=== PATIENT | female | born 1995 | race Caucasian/White ===

== ENCOUNTER 2016-03-23 15:29 | Emergency (ER) | payer OTHER, BC ==
[~2016-03-23] VITALS: Ht 165.1 cm; Wt 52.8 kg
[2016-03-23 15:48] VITALS: BP 95/59; PULSE 67; RESP 16; TEMP 98.7; O2SAT 99
[2016-03-23] MEDS ORDERED: ROBA500T PO (17:25)
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
== END 2016-03-23 17:43 | disposition home or self-care (01) ==
LOC: PHED 15:29 → PHEFT 17:43
DX: S16.1XXA Strain of muscle, fascia and tendon at neck level, initial encounter (principal); V89.2XXA Person injured in unspecified motor-vehicle accident, traffic, initial encounter; Y92.410 Unspecified street and highway as the place of occurrence of the external cause
CPT/HCPCS: 99283

== ENCOUNTER 2016-12-11 01:31 | Emergency (ER) | payer BC ==
[~2016-12-11] VITALS: Ht 165.1 cm; Wt 52.8 kg
[~2016-12-11 01:31] MED LIST: ROBA500T PO
[2016-12-11 01:35] VITALS: BP 109/69; PULSE 62; RESP 18; TEMP 98.3; O2SAT 99
[2016-12-11 01:54] LABS: BLOOD, URINE LARGE (NEG); GLUCOSE,URINE NEG (NEG); KETONE, URINE NEG (NEG); NITRITE,URINE NEG (NEG)
[2016-12-11 02:00] LABS: BACTERIA, URINE OCC /hpf; COMMENT (UR) CULTURE INDICATED; CULTURE IF INDICATED CULTURE INDICATED; SQUAMOUS EPITHELIAL CELL URINE 0-5 /hpf (0-5); URINE COLOR YELLOW (YELLW/STRAW)
[2016-12-11] MEDS ORDERED: CIPR-9 PO (02:27)
[2016-12-11] MEDS ORDERED: PHEN0.4T PO (02:27)
--- NOTE | 2016-12-11 02:27 | PD ---
HPI Chief Complaint: Complaint Time Seen by Provider: 02:16 Travel History International Travel<30 days: No Contact w/Intl Traveler<30days: No Traveled to known affect area: No History of Present Illness HPI The patient is a 20-year-old female that complains of dysuria, frequency or urgency tonight. She denies any fever, nausea, vomiting or flank pain. She has never had a urinary tract infection before. [facility] Past Medical History Medical History: Denies Significant Hx Tetanus Vaccination: Unknown Influenza Vaccination: Yes ?: Not LMP: 12-11-16 Past Surgical History Surgical History: No Previous Surgery Social History Alcohol Use: No Tobacco Use: No Substance Use: No Allergies-Medications (Allergen,Severity, Reaction): Coded Allergies: Sulfa (Sulfonamide Antibiotics) (Unverified Allergy, Severe, 12/11/16) Reported Meds & Prescriptions Reported Meds & Active Scripts Active No Active Prescriptions or Reported Medications Review of Systems Except as stated in HPI: all other systems reviewed are Neg Physical Exam Narrative GENERAL: Well-nourished, well-developed patient in minimal apparent distress with her suprapubic discomfort. Her vital signs are normal. SKIN: Focused skin assessment warm/dry. HEAD: Normocephalic. EYES: No scleral icterus. No injection or drainage. NECK: Supple, trachea midline. No JVD or lymphadenopathy. CARDIOVASCULAR: Regular rate and rhythm without murmurs, gallops, or rubs. RESPIRATORY: Breath sounds equal bilaterally. No accessory muscle use. GASTROINTESTINAL: Abdomen soft, with slight discomfort to direct palpation in the midline suprapubic area, nondistended. No flank tenderness is present. MUSCULOSKELETAL: No cyanosis, or edema. BACK: Nontender without obvious deformity. No CVA tenderness. Data Data Last Documented VS Vital Signs Date Time Temp Pulse Resp B/P (MAP) Pulse Ox O2 Delivery O2 Flow Rate FiO2 12/11/16 01:35 98.3 62 18 109/69 (82) 99 Orders Orders Urinalysis - C+S If Indicated (12/11/16 01:46) Ed Urine Pregnancytest Poc (12/11/16 01:46) Urine Culture (12/11/16 01:48) Labs Laboratory Tests Test 12/11/16 01:48 Urine Color YELLOW Urine Turbidity CLEAR Urine pH 6.0 Urine Specific Bastian 1.004 Urine Protein NEG mg/dL Urine Glucose (UA) NEG mg/dL Urine Ketones NEG mg/dL Urine Occult Blood LARGE Urine Nitrite NEG Urine Bilirubin NEG Urine Leukocyte Esterase MOD Urine RBC 10-14 /hpf Urine WBC 25-49 /hpf Urine Squamous Epithelial Cells 0-5 /hpf Urine Bacteria OCC /hpf Microscopic Urinalysis Comment CULTURE INDICATED MDM Medical Decision Making Medical Screen Exam Complete: Yes Emergency Medical Condition: Yes Medical Record Reviewed: Yes Interpretation(s) The urine shows large blood, moderate leukocyte esterase with 25-49 white cells and 10-14 red cells. The [id number] urine test is negative. Differential Diagnosis Cystitis, pyelonephritis, colitis, interstitial cystitis Narrative Course The patient has a cystitis. There is no evidence for pyelonephritis. Plan: The patient be given Cipro twice daily for 10 days. She will also get Pyridium 100 mg 3 times daily as needed for her symptoms of dysuria. Diagnosis Primary Impression: Cystitis Additional Instructions: As we discussed, it is important to increase fluid intake to establish a good urine flow across your kidneys. The Pyridium numbs up your urinary tract and decreases the symptoms. It also turns your urine orange. Follow-up with her primary care physician next week. Med/Other Pt SpecificInfo: Prescription(s) given Scripts Phenazopyridine (Pyridium) 100 Mg Tab 100 MG PO Q8H Y for DYSURIA, #15 TAB 0 Refills Prov: Mirza Payton MD 12/11/16 Ciprofloxacin (Cipro) 500 Mg Tab 500 MG PO BID for Infection for 10 Days, #20 TAB 0 Refills Prov: Mirza Payton MD 12/11/16 Disposition: 01 DISCHARGE HOME Condition: Stable Mirza Payton MD Dec 11, 2016 02:27
[2016-12-11] MEDS ORDERED: PHENAZOPYRIDINE HCL 100 MG TAB PO ONE (02:30)
[2016-12-11] MEDS ORDERED: CIPROFLOXACIN 500 MG TAB PO ONE (02:30)
== END 2016-12-11 02:36 | disposition home or self-care (01) ==
LOC: PHED 01:31
DX: N30.90 Cystitis, unspecified without hematuria (principal); B96.89 Other specified bacterial agents as the cause of diseases classified elsewhere
CPT/HCPCS: 81001; 84703; 87086; 99284